=== PATIENT | female | born 1960 | race African-American/Black ===

== ENCOUNTER → 2021-12-25 | Emergency (ER) | payer OTHER ==
--- OUTSIDE RECORDS SUMMARY | 2021-12-25 15:57 | XMS REPORT | Continuity of Care Document ---
:1960 Author Organization [facility] t Address [address] [place] [address] Care Team Providers Name Role Phone Maria Isabel JOHN Primary Care Physician Unavailable RADIOLOGY Attending Clinician Unavailable Radiology Attending Clinician Unavailable MONICAL Admitting Clinician Unavailable Payers Payer Name Policy Type Policy Number Effective Date Expiration Date S tariq [employer] II [id number] 2020 00:00:00 Problems This patient has no known problems. Allergies, Adverse Reactions, Alerts Allergy Allergy Status Severity Reaction(s) Onset Inactive Treating Comm ents Source Name Type Date Date Clinician NO KNOWN Drug Active [facility] ALLERGIE [facility] Social History Social Habit Start Date Stop Date Quantity Comments Source Sex Assigned At [birth year] [facility] 00:00:00 00:00:00 [facility] [place] Smoking Status Start Date Stop Date Source Unknown if ever smoked [facility] Medications This patient has no known medications. Procedures Procedure Date / Time Performing Clinician Source Performed [facility] PATIENT FINANCIAL 2021-09-16 17:28:54 [facility] NO SHOW OR MISSED 2021-09-16 17:28:27 Doctor Negrito, [facility] APPOINTMENT POLICY [facility] ACKNOWLEDGEMENT NOTICE OF PRIVACY 2021-09-16 17:28:02 Doctor Negrito, [facility] PRACTICES [facility] CONSENT/REFUSAL FOR 2021-09-16 17:27:41 Doctor Unasspat, [facility] DIAGNOSIS AND TREATMENT [facility] ASSIGNMENT OF BENEFITS 2021-09-16 17:27:21 Doctor [facility]assigned, [facility] Encounters Start End Encounter Admission Attending Care Care Encounter Source Date/Time Date/Time Type Type Clinicians Facility Department ID 2021-09-16 2021-09-16 Outpatient R RADIOLOGY [facility] [id number] [facility] 11:29:32 23:59:00 ity of [facility] 2021-09-16 2021-09-16 [facility] Rad[facility] [id number] [facility] 11:00:00 23:59:00 Encounter [place] [id number] ity [facility] [id number] [facility] [id number] [facility] [address] Branch Results This patient has no known results.
== END ==
LOC: ER 15:53
DX: Z02.9 Encounter for administrative examinations, unspecified (principal)